=== PATIENT | female | born 1945 | race Caucasian/White ===

== ENCOUNTER 2018-01-17 08:42 | Day surgery (SDC) | payer MEDICARE, OTHER ==
[~2018-01-17 08:42] MED LIST: BUPIVACAINE HCL 0.75% INJ/PF (7.5 MG/1 ML) 10 ML SDV OD PRN; CHONDR SU A NA/HYALUR INTRAOC KIT (SURGICARE) ONE; EPINEPHRINE INJ/PF 1 MG/1 ML AMPULE ONE; KETOROLAC TROMETHAMINE 0.45% 4 DROP/0.4 ML DROPERETTE OD PRN; LIDOCAINE 1% INJ-PF (10 MG/ML) 30 ML SDV ONE; LIDOCAINE 4% INJ/PF (40 MG/ML) 5 ML AMPUL OD PRN
[2018-01-17] MEDS ORDERED: MIDAZOLAM 2 MG/2 ML INJ ONE (08:48)
[2018-01-17] MEDS: BESIFLOXACIN HCL 0.6% OPH SUSP 5 ML BOTTLE OD PRN ×3 (09:30→10:40)
[2018-01-17] MEDS: CYCLOPENTOLATE 0.2%/PHENYLEPHRINE 1% OPH SOLN 2 ML OD PRN ×3 (09:30→09:48)
[2018-01-17] MEDS: TETRACAINE HCL 0.5% OPH SOLN 0.6 ML DROPERETTE OD PRN ×2 (09:30→09:58)
[2018-01-17] MEDS: TROPICAMIDE 1% OPH SOLN 3 ML OD PRN ×3 (09:30→09:48)
--- NOTE | 2018-01-17 10:51 | [facility] OPERATIVE REPORT E ---
[facility] Operative Report NAME: MAISHA HOWE AGE: 72Y DATE OF SURGERY: 01/17/2018 ROOM: PREOPERATIVE DIAGNOSIS: Cataract, right eye. POSTOPERATIVE DIAGNOSIS: Cataract, right eye. PROCEDURE PERFORMED: Phacoemulsification with posterior chamber intraocular lens, right eye. SURGEON: TONEY MERCADO M.D. ANESTHESIA: Topical with MAC. INDICATIONS FOR SURGERY: Difficulty seeing words on the TV. PROCEDURE: The patient was brought to the Operating Room and placed on the operative table. Following tetracaine drops, topical anesthesia was administered. This consisted of instrument wipe pledgets soaked in a solution of 4% Xylocaine mixed with 0.75% Marcaine in a 1:2 ratio. A 2 x 1 cm pledget was placed in the superior fornix. A 1 x 1 cm pledget was placed in the inferior fornix. The eye was patched shut for 5 minutes. The patch was removed. The eye was sterilely prepped and draped in the usual manner. Lid speculum was placed in the eye. The pledgets were removed. 4-0 black silk sutures were placed around the superior and the inferior rectus muscles to be used as traction. A conjunctival peritomy was made at the 10 o'clock position. Hemostasis was obtained with bipolar cautery. A posterior limbal groove was created using a crescent knife and dissected anteriorly towards the cornea. A sharp point blade was used to create a paracentesis site at the 2 o'clock position. A 2.4 mm keratome was used to enter the anterior chamber through the groove. Viscoelastic was injected into the anterior chamber. An anterior capsulotomy was performed using Utrata forceps in a capsulorrhexis fashion. Hydrodissection and hydrodelineation were performed. Phacoemulsification was performed in hzeyit-zhr-udaugei technique. A total of 8 CDE phaco time was used. Following this, the I/A unit was used to remove residual cortex. Viscoelastic was injected into the capsular bag. Intraocular lens model SN60WF, 22.5 diopters, serial number [id number] was placed in the capsular bag. The I/A unit was used to remove residual viscoelastic. The wound was seen to be watertight under high and low pressure, and no sutures were placed. The intraocular lens was well centered. The pressure was adjusted in the eye to normal pressure. The 4-0 black silk sutures and lid speculum were removed. The eye was shielded after Besivance drops were placed. The patient tolerated the procedure well and was sent to the Recovery Room in good condition. DICTATING PHYSICIAN: TONEY MERCADO M.D. [id number] PHY#: [id number] ID: [id number] JOB#: [id number] ACCT: [id number] cc:TONEY MERCADO M.D. >
--- NOTE | 2018-01-17 10:56 | [facility] DISCHARGE SUMMARY E ---
[facility] Discharge Summary NAME: MAISHA HOWE AGE: 72Y ADMITTED: 01/17/2018 DISCHARGED: 01/17/2018 HOSPITAL COURSE: The patient is a 72-year-old lady who underwent uneventful cataract extraction with intraocular lens implant, right eye, on 01/17/2018. She will be discharged to home. She is instructed to resume preoperative medications, to take Tylenol as needed for discomfort, to keep her eye shielded, to use Durezol, Prolensa, and Besivance at 3 p.m. and 8 p.m., and to follow up in my office in 1 day. DICTATING PHYSICIAN: TONEY MERCADO M.D. [id number] PHY#: [id number] ID: [id number] JOB#: [id number] ACCT: [id number] cc:TONEY MERCADO M.D. >
== END 2018-01-17 11:26 | disposition home or self-care (01) ==
LOC: SC 08:42
PROVIDERS: ATTEND Ophthalmology
DX: H25.813 Combined forms of age-related cataract, bilateral (principal); H40.033 Anatomical narrow angle, bilateral; H11.003 Unspecified pterygium of eye, bilateral; J45.909 Unspecified asthma, uncomplicated; I10 Essential (primary) hypertension; Z79.899 Other long term (current) drug therapy; E07.9 Disorder of thyroid, unspecified; Z88.2 Allergy status to sulfonamides; Z88.5 Allergy status to narcotic agent; Z88.0 Allergy status to penicillin; Z79.82 Long term (current) use of aspirin; Z79.1 Long term (current) use of non-steroidal anti-inflammatories (NSAID)
CPT/HCPCS: 66984; V2632; J2250; J3490 ×4; A9270; J0171; 142

== ENCOUNTER 2018-02-02 12:25 | Emergency (ER) | payer MEDICARE, OTHER ==
--- NOTE | 2018-02-02 12:40 | ER Document Report ---
ED General - General Chief Complaint: Slurred Speech Stated Complaint: POSSIBLE ALLERGIC REACTION Time Seen by Provider: 02/02/18 12:40 Notes: This is a 72-year-old female. Recent diagnosis of dementia. Started on Aricept a few days ago by her primary care provider. Stated this morning she was having difficulty with speech. Questionable right-sided facial weakness. Currently family members are present and state that she is very much at her baseline. Patient currently lives alone. Is in the same house that she grew up in. Daughter lives approximately 1/2 hours away. Denies any pain. Does have some dizziness but states that her speech is much better at this time. TRAVEL OUTSIDE OF THE [place] IN LAST 30 DAYS: No - HPI Onset: Yesterday Onset/Duration: Gradual, Better Quality of pain: No pain Severity: Mild Pain Level: 0 Associated symptoms: Weakness - Related Data Allergies/Adverse Reactions: amoxicillin [Amoxicillin] Allergy (Verified 01/17/18 09:35) bupropion HCl [From Wellbutrin] Allergy (Verified 01/17/18 09:35) codeine [Codeine] Allergy (Verified 01/17/18 09:35) erythromycin base [Erythromycin Base] Allergy (Verified 01/17/18 09:35) lisinopril Allergy (Verified 01/17/18 09:35) metronidazole [From Flagyl] Allergy (Verified 01/17/18 09:35) minocycline [Minocycline] Allergy (Verified 01/17/18 09:35) prochlorperazine edisylate [From Compazine] Allergy (Verified 01/17/18 09:35) prochlorperazine maleate [From Compazine] Allergy (Verified 01/17/18 09:35) Sulfa (Sulfonamide Antibiotics) Allergy (Verified 01/17/18 09:35) Past Medical History - General Information source: Patient, Relative - Social History Smoking Status: Never Smoker Cigarette use (# per day): No Chew tobacco use (# tins/day): No Drug Abuse: None Lives with: Alone Family History: Reviewed & Not Pertinent Patient has suicidal ideation: No Patient has homicidal ideation: No - Past Medical History Cardiac Medical History: Reports: Hx Hypercholesterolemia, Hx Hypertension Denies: Hx Heart Attack Pulmonary Medical History: Reports: Hx Asthma - HX OF NO PROBLEMS LAST FEW YEARS Neurological Medical History: Denies: Hx Cerebrovascular Accident, Hx Seizures Endocrine Medical History: Reports: Hx Hypothyroidism Renal/ Medical History: Denies: Hx Peritoneal Dialysis GI Medical History: Denies: Hx Hepatitis, Hx Hiatal Hernia, Hx Ulcer Psychiatric Medical History: Reports: Hx Depression Infectious Medical History: Denies: Hx Hepatitis Past Surgical History: Reports: Hx Tubal Ligation - 1971. Denies: Hx Mastectomy , Hx Open Heart Surgery, Hx Pacemaker - Immunizations Hx Diphtheria, Pertussis, Tetanus Vaccination: No Review of Systems - Review of Systems Notes: Constitutional: denies: Chills, Diaphoresis, Fever, Malaise, Weakness EENT: denies: Eye discharge, Blurred vision, Tearing, Double vision, Nose congestion, Nose discharge, Throat swelling, Mouth pain Cardiovascular: denies: Palpitations, Heart racing, Orthopnea, Dyspnea, Chest pain Respiratory: denies: Cough, Hurts to breathe, Wheezing, Shortness of breath Gastrointestinal: denies: Abdominal pain, Diarrhea, Nausea, Vomiting, Black stools, bright red blood in stool Genitourinary: denies: Burning, Dysuria, Discharge, Frequency, Flank pain, Hematuria Musculoskeletal: denies: Joint pain, Joint swelling, Muscle pain, Muscle stiffness, back pain Hematologic/Lymphatic: denies: Anemia, Easy bleeding, Easy bruising, Blood clots Neurological/Psychological: Positive for slurred speech, right facial weakness, dizziness Skin: No lesions, no masses, no skin breakdown, no abscesses Physical Exam - Vital signs Vitals: Temp Pulse Resp BP Pulse Ox 97.8 F 79 14 163/83 H 98 02/02/18 12:35 02/02/18 12:35 02/02/18 12:35 02/02/18 12:35 02/02/18 12:35 Interpretation: Normal - General General appearance: Appears well, Alert - HEENT Head: Normocephalic, Atraumatic Eyes: Normal Pupils: PERRL - Respiratory Respiratory status: No respiratory distress Chest status: Nontender Breath sounds: Normal Chest palpation: Normal - Cardiovascular Rhythm: Regular Heart sounds: Normal auscultation Murmur: No - Abdominal Inspection: Normal Distension: No distension Bowel sounds: Normal Tenderness: Nontender Organomegaly: No organomegaly - Back Back: Normal, Nontender - Extremities General upper extremity: Normal inspection, Nontender, Normal color, Normal ROM , Normal temperature General lower extremity: Normal inspection, Nontender, Normal color, Normal ROM , Normal temperature. No: Da's sign - Neurological Neuro grossly intact: Yes Cognition: Normal Orientation: AAOx4 [place] Coma Scale Eye Opening: Spontaneous [place] Coma Scale Verbal: Oriented [place] Coma Scale Motor: Obeys Commands [place] Coma Scale Total: 15 Speech: Normal Cranial nerves: Normal Cerebellar coordination: Normal Motor strength normal: LUE, RUE, LLE, RLE Additional motor exam normals: Equal frame hand. No: Pronator drift Babinski reflex: Normal (flexor plantar) Sensory: Normal - Psychological Associated symptoms: Normal affect, Normal mood - Skin Skin Temperature: Warm Skin Moisture: Dry Skin Color: Normal Course - Re-evaluation Re-evalutation: 02/02/18 13:18 Well-appearing individual with early onset dementia. Recently started on Aricept. Likely this could be some of her symptoms. Will do head CT basic labs and reassess. Plus or minus MRI as well. 02/02/18 13:19 Discussion with the daughter with regards to dementia and this patient being alone. She understands that she will likely needs some supervision but the patient is doing quite well at this time and has been making her doctor's appointment on her own. Unlikely that she needs immediate intervention with assisted placement or assisted living. Family members seem very responsive to her needs. 02/02/18 18:[address] unremarkable. Labs unremarkable. Find nothing further at this time. Have had a long conversation with regards to wellness. At this time I feel comfortable discharging in stable condition. - Vital Signs Vital signs: Temp Pulse Resp BP Pulse Ox 97.8 F 74 15 139/77 H 96 02/02/18 12:35 02/02/18 13:00 02/02/18 15:36 02/02/18 15:36 02/02/18 15:36 - Laboratory Result Diagrams: 02/02/18 11:53 02/02/18 13:53 Laboratory results interpreted by me: 02/02/18 02/02/18 11:53 13:53 Seg Neutrophils % 78.5 H Lymphocytes % 12.8 L Potassium 3.5 L Creatine Kinase < 20 L - EKG Interpretation by Me EKG shows normal: Intervals, QRS Complexes, ST-T Waves Voltage: Consistant with [facility] Discharge - Discharge Clinical Impression: Altered mental status, unspecified Qualifiers: Altered mental status type: unspecified Qualified Code(s): R41.82 - Altered mental status, unspecified Condition: Good Disposition: HOME, SELF-CARE Instructions: Altered Mental Status ([facility]) Additional Instructions: In the event that you have any worsening symptoms please return. It may benefit you to stop the new medication for which she was started as this may be causing some symptoms. These follow-up with your doctor and discuss any medication changes with your doctor or primary care provider before making these decisions on your own. Referrals: YANETH ROSSI FNP [Primary Care Provider] - Follow up as needed
[2018-02-02 12:50] LABS: ABSOLUTE BASOPHILS # (AUTO) 0.1 10^3/uL (0.0-0.2); ABSOLUTE EOSINOPHILS # (AUTO) 0.2 10^3/uL (0.0-0.6); ABSOLUTE LYMPHOCYTES (AUTO) 1.2 10^3/uL (0.5-4.7); ABSOLUTE MONOCYTES (AUTO) 0.6 10^3/uL (0.1-1.4); ABSOLUTE NEUT (AUTO) 7.4 10^3/uL (1.7-8.2); BASOPHILS % (AUTO) 0.6 % (0-2); EOSINOPHILS % (AUTO) 1.8 % (0-6); HEMATOCRIT 41.7 % (36.0-47.0); HEMOGLOBIN 14.5 g/dL (12.0-15.5); LYMPHOCYTES % (AUTO) 12.8 % (13-45); MEAN CORPUSCULAR HEMOGLOBIN 31.2 pg (27.0-33.4); MEAN CORPUSCULAR HGB CONC 34.9 g/dL (32.0-36.0); MEAN CORPUSCULAR VOLUME 89 fl (80-97); MONOCYTES % (AUTO) 6.3 % (3-13); PLATELET COUNT 223 10^3/uL (150-450); RED BLOOD COUNT 4.66 10^6/uL (3.72-5.28); RED CELL DISTRIBUTION WIDTH 13.6 % (11.5-14.0); SEGMENTED NEUTROPHILS % (AUTO) 78.5 % (42-78); TOTAL CELLS COUNTED % (AUTO) 100 %; WHITE BLOOD COUNT 9.4 10^3/uL (4.0-10.5)
--- NOTE | 2018-02-02 12:58 | EKG REPORT ---
SEVERITY:- ABNORMAL ECG - SINUS RHYTHM LEFT VENTRICULAR HYPERTROPHY BORDERLINE PROLONGED QT INTERVAL : Confirmed by: Sundeep Solis MD 02-Feb-2018 12:57:47
--- NOTE | 2018-02-02 14:00 | RADIOLOGY REPORT (SQ) ---
EXAM DESCRIPTION: CT HEAD WITHOUT COMPLETED DATE/TIME: 02/02/2018 1:28 pm REASON FOR STUDY: slurred speech COMPARISON: 10/03/2015 TECHNIQUE: Axial images acquired through the brain without intravenous contrast. Images reviewed wi th bone, brain and subdural windows. Additional sagittal and coronal reconstructions were generated. Images stored on PACS. All CT scanners at this facility use dose modulation, iterative reconstruction, and/or weight based d osing when appropriate to reduce radiation dose to as low as reasonably achievable (ALARA). [facility]: Dose Right [facility]: CareDose [facility]: Dose Right [facility]: Teradose 4D [facility]: Oakmonkey RADIATION DOSE: CT Rad equipment meets quality standard of care and radiation dose reduction techniq ues were employed. CTDIvol: 53.2 mGy. DLP: 1044 mGy-cm. mGy. LIMITATIONS: None. FINDINGS: VENTRICLES: Normal size and contour. CEREBRUM: No masses. No hemorrhage. No midline shift. No evidence for acute infarction. Moderate b ifrontal and biparietal small vessel ischemic change. 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 CEREBELLUM: No masses. No hemorrhage. No alteration of density. No evidence for acute infarction. EXTRAAXIAL SPACES: No fluid collections. No masses. ORBITS AND GLOBE: No intra- or extraconal masses. Normal contour of globe without masses. CALVARIUM: No fracture. PARANASAL SINUSES: No fluid or mucosal thickening. SOFT TISSUES: No mass or hematoma. OTHER: No other significant finding. IMPRESSION: Chronic small vessel disease. No acute findings. EVIDENCE OF ACUTE STROKE: NO. COMMENT: Quality ID # [id number]: Final reports with documentation of one or more dose reduction techniques (e.g., Automated exposure control, adjustment of the mA and/or kV according to patient size, use of iterative reconstruction technique) TECHNICAL DOCUMENTATION: JOB ID: [id number] [employer]- All Rights Reserved Reading location - IP/workstation name: [email or web address]
[2018-02-02 14:31] LABS: APPEARANCE,URINE CLEAR; BILIRUBIN,URINE NEGATIVE (NEGATIVE); COLOR,URINE COLORLESS; GLUCOSE, URINE NEGATIVE (NEGATIVE); KETONES,URINE NEGATIVE (NEGATIVE); LEUKOCYTE ESTERASE,URINE NEGATIVE (NEGATIVE); NITRITE,URINE NEGATIVE (NEGATIVE); PROTEIN,URINE NEGATIVE (NEGATIVE); URINE SPECIFIC GRAVITY 1.005; UROBILINOGEN,URINE NEGATIVE mg/dL (<2.0)
[2018-02-02 14:32] LABS: ALANINE AMINOTRANSFERASE 26 U/L (9-52); ALBUMIN 4.5 g/dL (3.5-5.0); ALKALINE PHOSPHATASE 88 U/L (38-126); ANION GAP 16 (5-19); ASPARTATE AMINO TRANSFERASE 31 U/L (14-36); BILIRUBIN,DIRECT 0.1 mg/dL (0.0-0.4); BILIRUBIN,TOTAL 0.5 mg/dL (0.2-1.3); BLOOD UREA NITROGEN 10 mg/dL (7-20); CALCIUM 9.7 mg/dL (8.4-10.2); CARBON DIOXIDE 27 mmol/L (22-30); CHLORIDE 98 mmol/L (98-107); GLUCOSE 99 mg/dL (75-110); POTASSIUM 3.5 mmol/L (3.6-5.0); SODIUM 141.1 mmol/L (137-145); TOTAL PROTEIN 7.3 g/dL (6.3-8.2)
[2018-02-02 14:33] LABS: CREATINE KINASE < 20 U/L (30-135)
[2018-02-02 14:44] LABS: CREATINE KINASE MB < 0.22 ng/mL (<4.55); TROPONIN I < 0.012 ng/mL
[2018-02-02 14:49] LABS: FREE T4 (FREE THYROXINE) 1.17 ng/dL (0.78-2.19)
[2018-02-02 15:03] LABS: THYROID STIMULATING HORMONE 2.24 uIU/mL (0.47-4.68)
--- NOTE | 2018-02-02 17:05 | RADIOLOGY REPORT (SQ) ---
EXAM DESCRIPTION: MRI HEAD WITHOUT COMPLETED DATE/TIME: 02/02/2018 4:51 pm REASON FOR STUDY: slurred speech and dizziness COMPARISON: None. TECHNIQUE: Multiplanar imaging includes non-contrasted T1, T2, FLAIR, and diffusion with ADC map seq uences. Images stored on PACS. LIMITATIONS: None. FINDINGS: ANATOMY: No anomalies. Normal vascular flow voids. Pituitary fossa normal. CSF SPACES: Normal in size and contour. No hemorrhage. CEREBRUM: Sulci and gyri are normal. There is some increased FLAIR signal in the periventricular whi te matter. No masses. No midline shift. No hemorrhage. POSTERIOR FOSSA: No signal alteration. No hemorrhage. No edema, masses or mass effect. Internal rosy tory canals, cerebello-pontine angles, mastoids normal. DIFFUSION IMAGING: Negative for acute or sub-acute infarction. ORBITS: No masses. Globes normal. PARANASAL SINUSES: No fluid levels. Mucosa normal. OTHER: No other significant finding. IMPRESSION: Chronic microvascular ischemia with no acute intracranial imaging findings. EVIDENCE OF ACUTE STROKE: NO. TECHNICAL DOCUMENTATION: JOB ID: [id number] All Rights Reserved Reading location - IP/workstation name: [email or web address]
[2018-02-02 18:55] VITALS: BP 135/78
== END 2018-02-02 18:55 | disposition home or self-care (01) ==
LOC: ER 12:25
DX: R41.82 Altered mental status, unspecified (principal); R47.81 Slurred speech; R29.810 Facial weakness; R42 Dizziness and giddiness; F03.90 Unspecified dementia, unspecified severity, without behavioral disturbance, psychotic disturbance, mood disturbance, and anxiety; E78.00 Pure hypercholesterolemia, unspecified; I10 Essential (primary) hypertension; E03.9 Hypothyroidism, unspecified; Z98.51 Tubal ligation status; Z88.2 Allergy status to sulfonamides; Z88.3 Allergy status to other anti-infective agents; Z88.6 Allergy status to analgesic agent
CPT/HCPCS: 36415; 70450; 70551; 80053; 81001; 82550; 82553; 82962; 84439; 84443; 84484; 85025; 87086; 93005; 93010; 99285